=== PATIENT | male | born 1990 | race Caucasian/White ===

== ENCOUNTER 2017-12-26 18:38 | Emergency (ER) | payer OTHER ==
[~2017-12-26] VITALS: Ht 185.4 cm; Wt 122.7 kg
[2017-12-26 18:49] VITALS: TEMP 36.8; Ht 185.4 cm; Wt 122.7 kg
[2017-12-26] MEDS ORDERED: IBUPROFEN 600 MG TAB PO STA (19:11)
[2017-12-26] MEDS ORDERED: ACETAMINOPHEN 500 MG TAB PO STA (19:11)
--- NOTE | 2017-12-26 19:50 | DIAGNOSTIC IMAGING REPORT ---
L TIBIA/FIBULA 4 VIEWS ROUTINE CLINICAL HISTORY: Left lower leg pain status post trauma COMPARISON: None. DISCUSSION: No acute fractures or dislocations are visualized. IMPRESSION: No acute fractures identified. Electronically signed by: Rudy Macario M.D. 12/26/2017 7:48 PM Dictated Date/Time: 12/26/2017 7:48 PM
--- NOTE | 2017-12-26 20:45 | DIAGNOSTIC IMAGING REPORT ---
ULTRASOUND L VENOUS DOPP LOWER EXT UNILAT CLINICAL HISTORY: Left leg pain. Bruising. COMPARISON STUDY: No previous studies for comparison. FINDINGS: Real-time and color flow Doppler imaging were performed. Flow was seen within the femoral, popliteal and calf veins with no intraluminal thrombus demonstrated. The saphenous vein is patent. IMPRESSION: No evidence of left lower extremity DVT. Electronically signed by: Rudy Macario M.D. 12/26/2017 8:43 PM Dictated Date/Time: 12/26/2017 8:43 PM
[2017-12-26] MEDS ORDERED: NORCO 5/325MG HOME PACK PO ONE (21:15)
[2017-12-26] MEDS ORDERED: IBUP-1459 PO (21:17)
[2017-12-26 21:55] VITALS: BP 124/72; PULSE 72; O2SAT 98
--- NOTE | 2017-12-26 22:46 | EMERGENCY ROOM VISIT NOTE ---
History First contact with patient: 18:54 Chief Complaint: LEG PAIN,LEG INJURY Stated Complaint: PULL OR TEAR IN LEG History of Present Illness The patient is a 27 year old male who presents to the Emergency Room with complaints of pain in his left leg that began about 2 days ago. Patient states that he is usually healthy without chronic problems in this leg. The patient got off work this week, and states that his friend was going to drive him home. Patient began jogging up a hill to get to the vehicle, when he felt a loud pop and instant pain in the left calf. The patient has had difficulty with walking ever since, stating that whenever he pushes down with his foot it causes significant pain. He has been walking on his heel because of this. He has been taking 400 mg ibuprofen with only minimal improvement of symptoms. He rates his current discomfort as 6/10 that does worsen with walking. Review of Systems More than 10 systems were reviewed and otherwise negative with the exception of history of present illness. Past Medical/Surgical History No chronic medical disease Family History No pertinent family history Social History Smoking Status: Never Smoker Occupation Status: employed Current/Historical Medications Scheduled PRN Ibuprofen (Motrin), 400 MG PO BID PRN for Pain Physical Exam Vital Signs Date Time Temp Pulse Resp B/P (MAP) Pulse Ox O2 Delivery O2 Flow Rate FiO2 12/26/17 21:55 72 20 124/72 98 12/26/17 18:49 36.8 87 18 135/66 98 Room Air Physical Exam VITALS: Vitals are noted on the nurse's note and reviewed by myself. Vital signs stable. GENERAL: Well-developed, well-nourished, white male, who is in no acute distress and resting comfortably. Patient is cooperative with the examination. NECK: Supple without nuchal rigidity. No lymphadenopathy. No thyromegaly. Cervical spine is nontender. HEART: Regular rate and rhythm without murmurs gallops or rubs. LUNGS: Clear to auscultation bilaterally without wheezes, rales or rhonchi. No retractions or accessory muscle use. ABDOMEN: Positive normal bowel sounds x 4. Soft, nontender, without masses or organomegaly. No guarding or rebound tenderness. MUSCULOSKELETAL: Tenderness is appreciated throughout the posterior aspect of the left calf. There is medial ecchymosis as well. No palpable cord. Strength dorsiflexion is full, however it is notably decreased to plantarflexion of the left foot. No tenderness of the knee or hip. Medical Decision & Procedures ER Provider Diagnostic Interpretation: ULTRASOUND L VENOUS DOPP LOWER EXT UNILAT CLINICAL HISTORY: Left leg pain. Bruising. COMPARISON STUDY: No previous studies for comparison. FINDINGS: Real-time and color flow Doppler imaging were performed. Flow was seen within the femoral, popliteal and calf veins with no intraluminal thrombus demonstrated. The saphenous vein is patent. IMPRESSION: No evidence of left lower extremity DVT. L TIBIA/FIBULA 4 VIEWS ROUTINE CLINICAL HISTORY: Left lower leg pain status post trauma COMPARISON: None. DISCUSSION: No acute fractures or dislocations are visualized. IMPRESSION: No acute fractures identified. Medications Administered Medications (Trade) Dose Ordered Sig/[place] Route Start Time Stop Time Status Last Admin Dose Admin Acetaminophen (Tylenol Tab) 1,000 mg NOW STAT PO 12/26/17 19:11 12/26/17 19:12 DC 12/26/17 19:17 1,000 MG Ibuprofen (Motrin Tab) 600 mg NOW STAT PO 12/26/17 19:11 12/26/17 19:12 DC 12/26/17 19:16 600 MG Acetaminophen/ Hydrocodone Bitart ([place] 5/325mg Home Pack) 1 homepack UD ONCE PO 12/26/17 21:15 12/26/17 21:16 DC 12/26/17 21:49 1 HOMEPACK ED Course Physical exam and history were performed. Nursing notes, EMR, and Medication List were personally reviewed. Patient appears to have pain in his left calf after feeling a popping sensation while running the other day. On examination he does have tenderness and bruising along the medial gastroc. The patient was given ibuprofen and Tylenol here in the department. Both x-ray and ultrasound were performed. The x-ray is as above and was reviewed by myself and radiology. It does not show acute fracture or dislocation. Ultrasound is without signs of DVT or other significant findings. Clinically I have concern for muscle or tendinous injury causing his symptoms. The patient will be placed in an Orthoplast splint and given crutches. I will also give him a home pack of Vicodin. The patient needs to follow with orthopedics for further care and management. He was otherwise invited back to the ER with any new, worsening, or concerning symptoms. The chart was completed utilizing [employer] Voice Recognition Software. Grammatical errors, random word insertions, pronoun errors, and incomplete sentences are an occasional consequence of this system due to software limitations, ambient noise, and hardware issues. Any formal questions or concerns about the content, text, or information contained within the body of this dictation should be directly addressed to the provider for clarification. . Medical Decision Differential diagnosis includes, but is not limited to: Sprain, strain, fracture , dislocation, subluxation, contusion, and others Impression Primary Impression: Injury of left lower leg Departure Information Dispostion Home / Self-Care Condition GOOD Referrals Hector James, DO Forms HOME CARE DOCUMENTATION FORM, IMPORTANT VISIT INFORMATION Patient Instructions My [facility], ED Compartment Syndrome At Risk For, ED RICE Additional Instructions You were seen and evaluated today on an emergency basis only. This is not a substitute for, or an effort to provide, complete comprehensive medical care. It is not possible to recognize and treat all injuries or illnesses in a single emergency department visit. For this reason it is recommended that you followup with [facility], Dr. James's office, by telephone tomorrow morning to arrange a follow-up visit this week. Let them know you are seen in the ER. Use your crutches at all times to help with walking. Do not get your splint wet. For baseline pain relief you may alternate ibuprofen and acetaminophen every 4 hours for pain control. Take 600 mg ibuprofen (Advil) and then 4 hours later take 1000 mg acetaminophen (Tylenol). Do not take more than 3000 mg acetaminophen in a single day. [place] (hydrocodone/acetaminophen) 5/325 mg (homepack) ONE tab by mouth every 6 hours as needed for worsening breakthrough pain. Do not drink or drive on [place]. This medication will likely make you tired. Do not take [place] and Tylenol at the same time as both contain acetaminophen. [place] may cause constipation. You may wish to take an [id number] stool softener like Colace if this occurs. You are welcome to return to the emergency department anytime with new, worsening, or concerning symptoms.
== END 2017-12-26 21:56 | disposition home or self-care (01) ==
LOC: C.EDB 18:39 → C.EDD 21:56
DX: S89.92XA Unspecified injury of left lower leg, initial encounter (principal); X58.XXXA Exposure to other specified factors, initial encounter; Y99.0 Civilian activity done for income or pay

== ENCOUNTER 2021-12-05 05:51 | Inpatient (IN) ==
--- NOTE | 2021-12-05 06:33 | Emergency Department Note ---
Impression & Plan Paranoia, Delusional disorder, Depressed mood ED Provider Note NAME: GALE BRYSON AGE: 30 SEX: M : 1990 ARRIVES VIA: Walk-In INFORMANT: patient, ED PROVIDER(S): Lino Barnhart MD Chief Complaint: Paranoia, delusional, obsessive and compulsive. HPI: Patient does present with above complaints which have been ongoing for the last several months and have gotten progressively worse. The patient has had increasing paranoia thinking that people are coming to the home when the doors are locked and that the neighbors to be trying to listen in on him through the Wi-Fi. Patient has no prior history of any mental wellness issues but there is family history of schizophrenia on both sides. Patient denies any HI or AVH. The patient states that he does feel depressed and has some apathy but no active intent to harm himself. Patient denies any fevers chills chest pain shortness of breath nausea or vomiting. Patient has not been able to hold a steady job. The patient denies any alcohol tobacco or drug use. Patient does not take any supplements or stimulants. Patient is not vaccinated for COVID-19. Patient has had worsening insomnia, poor sleep and decreased appetite. No access to guns or weapons at home. Patient states he does not feel safe at home. Mother bedside states that this is gotten progressively worse over the last several months the patient is increasingly paranoid and delusional. ROS: See HPI for pertinent positives and negatives. A total of 10 systems were reviewed and otherwise negative. Past medical history: See below Surgical history: See below Social history: See below Physical Exam: GENERAL: NAD, non-toxic. EYE EXAM: Normal conjunctiva. PERRL, no anisocoria and EOM's grossly intact w/o pain. OROPHARYNX: Moist mucus membranes. Grossly normal dentition. NECK: Supple, no nuchal rigidity, no adenopathy, non-tender. No signs of meningismus. LUNGS: Clear to auscultation. Normal chest wall mechanics. HEART: NSR, no MRG. ABDOMEN: Abdomen soft, non-tender, normo-active bowel sounds, no masses, no rebound or guarding. BACK: No CVA TTP. SKIN: No rashes and no bruising. UPPER EXTREMITIES: Upper extremities are grossly normal. LOWER EXTREMITIES: Grossly normal, no edema. NEURO EXAM: A&O x3, cranial nerves II-XII grossly intact, normal speech, moves all 4 extremities on command w/o issue. Psych: Depressed mood, negative HI SI or AVH. Differential diagnoses: Mood disorder, infection, hypoglycemia, electrolyte abnormalities, cardiac sources, intracerebral event, toxicologic, trauma, neurologic, as well as other pathologies. MDM: Patient was seen due to concern for mental wellness. Blood work was obtained patient was deemed medically cleared. Patient was seen and evaluated raised by the psych oil field caser. A referral was made upstairs and the patient was subsequently accepted to inpatient psychiatric at [facility]. Past Med/Surg History Medical History No pertinent past medical history Surgical History No pertinent past surgical history Social History Smoking Status: Never smoker Preferred Language: Bhutanese Feels Safe at Home: No Allergies Allergies Allergy/AdvReac Type Severity Reaction Status Date / Time No Known Allergies Allergy Verified 12/05/21 09:36 Home Meds Home Medications Medication Instructions Recorded Confirmed No Known Home Medications 01/08/19 12/05/21 Results & Data (ED) Vital Signs Vital Signs - 24 hr 12/05/21 05:56 12/05/21 09:26 Temperature 36.4 C L Temperature Source Oral Pulse Rate 83 Pulse Rate [Finger] 78 Respiratory Rate 18 18 Respiratory Effort / Characteristics Non-Labored Respiratory Depth Normal Blood Pressure 151/93 H Blood Pressure [Left Arm] 131/77 Blood Pressure Mean 112 Blood Pressure Mean [Left Arm] 95 Pulse Oximetry 96 98 Oxygen Delivery Method Room Air Room Air Sepsis Recent Fever Within 48 Hours No Sepsis New/Unexplained Change in Mental Status No Sepsis Action Taken by Nursing No Action Required Home Medications Current Medication List: was personally reviewed by me Laboratory Data Attestation: I reviewed the patient's lab results. Result diagrams: 12/05/21 06:25 12/05/21 06:25 Lab Results 12/05/21 12/05/21 12/05/21 Range/Units 06:05 06:05 06:05 WBC (4.8-10.8) K/uL RBC (4.7-6.1) M/uL Hgb (14.0-18.0) g/dL Hct (42-52) % MCV (80-100) fL MCH (25-34) pg MCHC (32-36) g/dL RDW Std Deviation (36.4-46.3) fL RDW Coeff of Bonifacio (11.5-14.5) % Plt Count (130-400) K/uL MPV (7.4-10.4) fL Immature Gran % (Auto) % Neut % (Auto) % Lymph % (Auto) % [place] % (Auto) % Eos % (Auto) % Baso % (Auto) % Neut # (Auto) (1.4-6.5) K/uL Lymph # (Auto) (1.2-3.4) K/uL [place] # (Auto) (0.11-0.59) K/uL Eos # (Auto) (0-0.5) K/uL Baso # (Auto) (0-0.2) K/uL Immature Gran # (Auto) (0.00-0.02) K/uL Sodium (136-145) mmol/L Potassium (3.5-5.1) mmol/L Chloride (98-107) mmol/L Carbon Dioxide (21-32) mmol/L Anion Gap (3-11) BUN (6-23) mg/dl Creatinine (0.6-1.4) mg/dl Est Cr Clr Drug Dosing ml/min Est GFR ( Amer) ml/min Est GFR (Non-Af Amer) ml/min BUN/Creatinine Ratio (10-20) Glucose (70-99(Fasting)) mg/dl Calcium (8.5-10.1) mg/dl Total Bilirubin (0.2-1.0) mg/dl AST (13-39) U/L ALT (7-52) U/L Alkaline Phosphatase (34-104) U/L Total Protein (6.0-8.3) gm/dl Albumin (3.4-5.0) gm/dl Globulin (2.5-4.0) gm/dl Albumin/Globulin Ratio (0.9-2) TSH (0.300-4.500) uIu/ml Free T4 (0.61-1.60) ng/dl Urine Color Yellow Urine Appearance Clear (Clear) Urine pH 6.5 (4.5-7.5) Ur Specific [place] 1.015 (1.000-1.030) Urine Protein Negative (Negative) Urine Glucose (UA) Negative (Negative) Urine Ketones Negative (Negative) Urine Blood Negative (Negative) Urine Nitrite Negative (Negative) Urine Bilirubin Negative (Negative) Urine Urobilinogen Negative (Negative) Ur Leukocyte Esterase Negative (Negative) Salicylates (3.0-30) mg/dl Urine Opiates Screen Neg (Neg) Ur Methadone, Qual Neg (Neg) Acetaminophen (10-30) ug/ml Urine Barbiturates Neg (Neg) Ur Phencyclidine (PCP) Neg (Neg) U Amphetamin/Meth Scrn Neg (Neg) MDMA (Ecstasy) Screen Neg (Neg) U Benzodiazepines Scrn Neg (Neg) Ur Cocaine Metabolite Neg (Neg) U Marijuana (THC) Screen Neg (Neg) Ethyl Alcohol mg/dL (<10.0) mg/dl SARS-CoV-2, RNA, NAAT NEGATIVE (NEGATIVE) 12/05/21 12/05/21 12/05/21 Range/Units 06:25 06:25 06:25 WBC 8.17 (4.8-10.8) K/uL RBC 5.13 (4.7-6.1) M/uL Hgb 16.0 (14.0-18.0) g/dL Hct 45.7 (42-52) % MCV 89.1 (80-100) fL MCH 31.2 (25-34) pg MCHC 35.0 (32-36) g/dL RDW Std Deviation 39.9 (36.4-46.3) fL RDW Coeff of Bonifacio 12.3 (11.5-14.5) % Plt Count 215 (130-400) K/uL MPV 10.4 (7.4-10.4) fL Immature Gran % (Auto) 0.2 % Neut % (Auto) 53.7 % Lymph % (Auto) 38.1 % [place] % (Auto) 6.1 % Eos % (Auto) 1.5 % Baso % (Auto) 0.4 % Neut # (Auto) 4.39 (1.4-6.5) K/uL Lymph # (Auto) 3.11 (1.2-3.4) K/uL [place] # (Auto) 0.50 (0.11-0.59) K/uL Eos # (Auto) 0.12 (0-0.5) K/uL Baso # (Auto) 0.03 (0-0.2) K/uL Immature Gran # (Auto) 0.02 (0.00-0.02) K/uL Sodium 137 (136-145) mmol/L Potassium 3.6 (3.5-5.1) mmol/L Chloride 103 (98-107) mmol/L Carbon Dioxide 27 (21-32) mmol/L Anion Gap 7 (3-11) BUN 13 (6-23) mg/dl Creatinine 0.89 (0.6-1.4) mg/dl Est Cr Clr Drug Dosing 176.0 ml/min Est GFR ( Amer) 133.9 ml/min Est GFR (Non-Af Amer) 115.5 ml/min BUN/Creatinine Ratio 14.6 (10-20) Glucose 106 H (70-99(Fasting)) mg/dl Calcium 8.7 (8.5-10.1) mg/dl Total Bilirubin 0.6 (0.2-1.0) mg/dl AST 15 (13-39) U/L ALT 19 (7-52) U/L Alkaline Phosphatase 52 (34-104) U/L Total Protein 7.3 (6.0-8.3) gm/dl Albumin 4.5 (3.4-5.0) gm/dl Globulin 2.8 (2.5-4.0) gm/dl Albumin/Globulin Ratio 1.6 (0.9-2) TSH 4.542 H (0.300-4.500) uIu/ml Free T4 (0.61-1.60) ng/dl Urine Color Urine Appearance (Clear) Urine pH (4.5-7.5) Ur Specific [place] (1.000-1.030) Urine Protein (Negative) Urine Glucose (UA) (Negative) Urine Ketones (Negative) Urine Blood (Negative) Urine Nitrite (Negative) Urine Bilirubin (Negative) Urine Urobilinogen (Negative) Ur Leukocyte Esterase (Negative) Salicylates (3.0-30) mg/dl Urine Opiates Screen (Neg) Ur Methadone, Qual (Neg) Acetaminophen (10-30) ug/ml Urine Barbiturates (Neg) Ur Phencyclidine (PCP) (Neg) U Amphetamin/Meth Scrn (Neg) MDMA (Ecstasy) Screen (Neg) U Benzodiazepines Scrn (Neg) Ur Cocaine Metabolite (Neg) U Marijuana (THC) Screen (Neg) Ethyl Alcohol mg/dL (<10.0) mg/dl SARS-CoV-2, RNA, NAAT (NEGATIVE) 12/05/21 12/05/21 12/05/21 Range/Units 06:25 06:25 06:25 WBC (4.8-10.8) K/uL RBC (4.7-6.1) M/uL Hgb (14.0-18.0) g/dL Hct (42-52) % MCV (80-100) fL MCH (25-34) pg MCHC (32-36) g/dL RDW Std Deviation (36.4-46.3) fL RDW Coeff of Bonifacio (11.5-14.5) % Plt Count (130-400) K/uL MPV (7.4-10.4) fL Immature Gran % (Auto) % Neut % (Auto) % Lymph % (Auto) % [place] % (Auto) % Eos % (Auto) % Baso % (Auto) % Neut # (Auto) (1.4-6.5) K/uL Lymph # (Auto) (1.2-3.4) K/uL [place] # (Auto) (0.11-0.59) K/uL Eos # (Auto) (0-0.5) K/uL Baso # (Auto) (0-0.2) K/uL Immature Gran # (Auto) (0.00-0.02) K/uL Sodium (136-145) mmol/L Potassium (3.5-5.1) mmol/L Chloride (98-107) mmol/L Carbon Dioxide (21-32) mmol/L Anion Gap (3-11) BUN (6-23) mg/dl Creatinine (0.6-1.4) mg/dl Est Cr Clr Drug Dosing ml/min Est GFR ( Amer) ml/min Est GFR (Non-Af Amer) ml/min BUN/Creatinine Ratio (10-20) Glucose (70-99(Fasting)) mg/dl Calcium (8.5-10.1) mg/dl Total Bilirubin (0.2-1.0) mg/dl AST (13-39) U/L ALT (7-52) U/L Alkaline Phosphatase (34-104) U/L Total Protein (6.0-8.3) gm/dl Albumin (3.4-5.0) gm/dl Globulin (2.5-4.0) gm/dl Albumin/Globulin Ratio (0.9-2) TSH (0.300-4.500) uIu/ml Free T4 0.86 (0.61-1.60) ng/dl Urine Color Urine Appearance (Clear) Urine pH (4.5-7.5) Ur Specific [place] (1.000-1.030) Urine Protein (Negative) Urine Glucose (UA) (Negative) Urine Ketones (Negative) Urine Blood (Negative) Urine Nitrite (Negative) Urine Bilirubin (Negative) Urine Urobilinogen (Negative) Ur Leukocyte Esterase (Negative) Salicylates < 3.0 L (3.0-30) mg/dl Urine Opiates Screen (Neg) Ur Methadone, Qual (Neg) Acetaminophen < 3 L (10-30) ug/ml Urine Barbiturates (Neg) Ur Phencyclidine (PCP) (Neg) U Amphetamin/Meth Scrn (Neg) MDMA (Ecstasy) Screen (Neg) U Benzodiazepines Scrn (Neg) Ur Cocaine Metabolite (Neg) U Marijuana (THC) Screen (Neg) Ethyl Alcohol mg/dL < 10.0 (<10.0) mg/dl SARS-CoV-2, RNA, NAAT (NEGATIVE) Discharge Plan Visit Data Chief Complaint: Mental Health Evaluation Stated Complaint: ANXIETY,PARANOIA,SOUNDS IN HEAD,MENTAL HEALTH EVAL ED Provider: Lino Barnhart Discharge Problem: Paranoia, Delusional disorder, Depressed mood Patient Disposition: Admitted As Inpatient Forms Stand Alone Forms: My [facility], Suicide Prevention Resources Prescriptions Prescriptions: No Action No Known Home Medications RF: 0 Referrals Referrals: PCP,NO [Primary Care Provider] -
[2021-12-05 06:39] LABS: Basophils # (auto) 0.03 K/uL (0-0.2); Basophils % (auto) 0.4 %; Eosinophils # (auto) 0.12 K/uL (0-0.5); Eosinophils % (auto) 1.5 %; Hematocrit (blood only) 45.7 % (42-52); Immature Granulocytes # (auto) 0.02 K/uL (0.00-0.02); Immature Granulocytes % (auto) 0.2 %; Lymphocytes # (auto) 3.11 K/uL (1.2-3.4); Lymphocytes % (auto) 38.1 %; Mean Corpuscular Hemoglobin 31.2 pg (25-34); Mean Corpuscular Volume 89.1 fL (80-100); Mean Platelet Volume 10.4 fL (7.4-10.4); Monocytes % (auto) 6.1 %; Neutrophils # (auto) 4.39 K/uL (1.4-6.5); Neutrophils % (auto) 53.7 %; Platelet Count 215 K/uL (130-400); RDW Coefficient of Variation 12.3 % (11.5-14.5); RDW Standard Deviation 39.9 fL (36.4-46.3); Red Blood Count 5.13 M/uL (4.7-6.1); White Blood Count 8.17 K/uL (4.8-10.8)
[2021-12-05 06:45] LABS: Appearance Urine Clear (Clear); Bilirubin Urine Negative (Negative); Blood Urine Negative (Negative); Color Urine Yellow; Glucose Urine UA Negative (Negative); Ketones Urine Negative (Negative); Leukocyte Esterase Urine Negative (Negative); Nitrite Urine Negative (Negative); Protein Urine Negative (Negative); Specific Gravity Urine 1.015 (1.000-1.030); Urobilinogen Urine Negative (Negative); pH Urine 6.5 (4.5-7.5)
[2021-12-05 07:02] LABS: Acetaminophen < 3 ug/ml (10-30); Albumin Globulin Ratio 1.6 (0.9-2); Albumin Level 4.5 gm/dl (3.4-5.0); BUN Creatinine Ratio 14.6 (10-20); Bilirubin,Total 0.6 mg/dl (0.2-1.0); Calcium 8.7 mg/dl (8.5-10.1); Est GFR (African American) 133.9 ml/min; Est GFR (Non-African American) 115.5 ml/min; Globulin 2.8 gm/dl (2.5-4.0); Potassium 3.6 mmol/L (3.5-5.1); Salicylate < 3.0 mg/dl (3.0-30); Total Protein 7.3 gm/dl (6.0-8.3)
[2021-12-05 07:15] LABS: Amphetamines+Metham, Urine Neg (Neg); Barbiturates, Urine Neg (Neg); Benzodiazepine, Urine Neg (Neg); Cocaine, Urine Neg (Neg); MDMA (Ecstacy), Urine Neg (Neg); Methadone, Urine Neg (Neg); Opiate, Urine Neg (Neg); Phencyclidine, Urine Neg (Neg)
[2021-12-05] MEDS ORDERED: OLANZapine 5 MG TABLET PO PRN (10:45)
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
[2021-12-05] MEDS ORDERED: hydrOXYzine HCl 25 MG TAB PO PRN (11:16)
[2021-12-05] MEDS ORDERED: MAGNESIUM HYDROXIDE SUSP 30 ML UDC PO PRN (11:16)
[2021-12-05] MEDS ORDERED: SODIUM CHLORIDE 0.65% NA SOLN 45 ML (OCEAN) PRN (11:16)
[2021-12-05] MEDS ORDERED: BISMUTH SUBSALICYLATE LIQD 236 ML PO PRN (11:16)
[2021-12-05] MEDS ORDERED: ACETAMINOPHEN 325 MG TAB PO PRN (11:16)
[2021-12-05] MEDS ORDERED: ALUMINUM/MAGNESIUM SUSP 30 ML UDC PO PRN (11:16)
[2021-12-05] MEDS ORDERED: risperiDONE 0.5 MG TABLET PO SCH (22:00)
[2021-12-06] MEDS: risperiDONE 0.5 MG TABLET PO SCH (08:48)
--- NOTE | 2021-12-06 08:57 | Psychiatric Progress Note ---
Date of Service December 06, 2021 Impression / Recommendations Impression The patient is a 30 year old with no known psychiatric history, question for possible intellectual or specific learning disability given limited educational progress who was admitted for unspecified psychosis. Differential is broad but most likely diagnoses at this point are schizophreniform disorder given family history of schizophrenia and negative symptoms versus MDD with psychotic features. No evidence for rod/BPAD nor substance-induced or withdrawal cause. The patient is deemed unstable and requires psychiatric hospitalization for diagnostic clarification, safety and stabilization, medication management and development of further coping skills. 12/06/21: Tolerated initiation of risperidone and he consents to further increase of qhs dose to help with ongoing paranoia and anxiety especially before bed. Remains very guarded and withdrawn. Social work to gather further collateral from his mother about recent symptom progression. MNPR due to psychiatric symptoms of psychosis and paranoia and limited ability to tolerate interactions with others (1) Unspecified psychosis not due to a substance or known physiological condition: (2) Paranoia: (3) Depressed mood: 12/06/21: Increase risperidone to 0.25 mg qAM & 1 mg qHS. 12/05/21: The patient was admitted to the [facility] ([facility] mental [facility] unit) on q15 min checks (behavioral with suicide precautions) for safety. The patient will participate in group, recreational, and milieu therapies and will be offered additional individual and family sessions as clinically appropriate. -Start risperidone 0.25 mg qAM & 0.5 mg qhs -Fasting labs in the morning -Will need PCP follow-up for hernia concern Risk Factors Assessment Do You Have Access To A Gun?: No Protective Factors Assessment Employed: No (per mother, unable to maintain employment) Interval History Identifying Information GALE BRYSON is a 30-year-old man who currently lives in [place] with his mother and was admitted on 12/05/21 09:37 on a 201 voluntary commitment for paranoia and psychosis. Chief Complaint "I'm ok". Review of Systems Sleep Information Total Hours of Sleep: 4.75 Meal Information Percent Meal Consumed - Lunch: 100 Percent Meal Consumed - Dinner: 100 Subjective Subjective Patient was seen & assessed and interval progress reviewed with treatment team nursing and social work. Slept about 5 hours last night. Eating non-packaged foods. Guarded and withdrawn. Reports poor sleep due to anxiety about legal charges, states he thinks it is a third degree felony charge and that he could be incarcerated for 7 years. Expresses remorse that he let his anger and anxiety and "OCD" get the best of him and remains very worried about potential consequences. Had some mild orthostatic dizziness from risperidone when getting up in the middle of the night but sat for a minute and it went away. Denies any other side effects. Feels it is helping "a little bit" in that he is no longer having the chest pain from anxiety but still feels very anxious. Remains very guarded. Physical Exam Psychiatric Orientation: alert, oriented x 3 and + guarded Apperance: appropriately dressed and appropriately groomed Eye Contact: + poor eye contact Motor Behavior: steady gait and station and no abnormal motor movements Speech: normal rate/rhythm/volume of speech Affect: + flat affect Mood: + depressed mood and + anxious mood Thought Process: + circumstantial thought process and + looseness of associations Thought Content: + paranoid and + delusions Suicidal Thoughts: denies suicidal thoughts Homicidal Thoughts: denies homicidal thoughts Hallucinations: no auditory hallucinations and no visual hallucinations Cognition: language grossly intact; + attention not intact Estimated Intelligence: consistent with education level Insight: + impaired insight Judgement: + impaired judgement Vital Signs (Past 24 Hours) Last Vital Signs Temp 36.3 C L 12/06/21 06:36 Pulse 68 12/06/21 06:37 Resp 18 12/06/21 06:36 BP 122/81 12/06/21 06:37 Pulse Ox 98 12/05/21 09:26 Results & Data ([facility]) Current Inpatient Medications Current Inpatient Medications: Current Inpatient Medications Acetaminophen (Acetaminophen 325 Mg Tab) 650 mg PO Q4H PRN PRN Reason: Headache or Minor Fever Stop: 01/04/22 11:15 Al Hydrox/Mg Hydrox/Simethicone (Aluminum/Magnesium Susp 30 Ml Udc) 30 ml PO Q4H PRN PRN Reason: GI Upset Stop: 01/04/22 11:15 Bismuth Subsalicylate (Bismuth Subsalicylate Liqd 236 Ml) 15 ml PO PRN PRN PRN Reason: Loose Stool Stop: 01/04/22 11:15 Hydroxyzine HCl (Hydroxyzine Hcl 25 Mg Tab) 50 mg PO HSZ PRN PRN Reason: Insomnia Stop: 01/04/22 11:15 Hydroxyzine HCl (Hydroxyzine Hcl 25 Mg Tab) 25 mg PO Q4H PRN PRN Reason: Anxiety Stop: 01/04/22 11:15 Magnesium Hydroxide (Magnesium Hydroxide Susp 30 Ml Udc) 30 ml PO DAILY PRN PRN Reason: Constipation Stop: 01/04/22 11:15 Olanzapine (Olanzapine 5 Mg Tablet) 5 mg PO BID PRN PRN Reason: Agitation Stop: 01/04/22 20:59 Risperidone (Risperidone 0.5 Mg Tablet) 0.25 mg PO QAM ANDREA Stop: 01/05/22 08:59 Last Admin: 12/06/21 08:48 Dose: 0.25 mg Documented by: Risperidone (Risperidone 0.5 Mg Tablet) 0.5 mg PO HS ANDREA Stop: 01/04/22 21:59 Last Admin: 12/05/21 21:54 Dose: 0.5 mg Documented by: Sodium Chloride (Sodium Chloride 0.65% Na Soln 45 Ml ([place])) 1 - 2 sprays NA PRN PRN PRN Reason: Nasal Dryness/Congestion Stop: 01/04/22 11:15 Mental Health & Subst Abuse Tx Therapist Name of Therapist: None Fire Chief'S Aide Name of Fire Chief'S Aide: None
[2021-12-06] MEDS: risperiDONE 1 MG TABLET PO SCH (21:44)
[2021-12-06] MEDS: hydrOXYzine HCl 25 MG TAB PO PRN (21:45)
[2021-12-07 08:36] LABS: Chol HDL Ratio 4.2 (0-5)
[2021-12-07] MEDS: risperiDONE 0.5 MG TABLET PO SCH (09:31)
--- NOTE | 2021-12-07 10:49 | Psychiatric Progress Note ---
Date of Service December 07, 2021 Impression / Recommendations Impression The patient is a 30 year old with no known psychiatric history, question for possible intellectual or specific learning disability given limited educational progress who was admitted for unspecified psychosis. Differential is broad but most likely diagnoses at this point are schizophreniform disorder given family history of schizophrenia and negative symptoms versus MDD with psychotic features. No evidence for rod/BPAD nor substance-induced or withdrawal cause. The patient is deemed unstable and requires psychiatric hospitalization for diagnostic clarification, safety and stabilization, medication management and development of further coping skills. 12/07/21: Reviewed fasting labs and discussed with Hamilton. Normal fasting glucose but slightly elevated total cholesterol and LDL. Will need PCP follow-up after discharge to discuss treatment options for hyperlipidemia especially given potential metabolic risks with risperidone. Reviewed with Hamilton that this will require ongoing routine monitoring via bloodwork which he understands and that if it worsens in the future then safety profile of risperidone will need to be reassessed with his outpatient providers. Tolerating risperidone well with increased engagement, more active today and anxious, still with some paranoia but guardedness has improved significantly. Continue with risperidone titration. MNPR due to psychiatric symptoms of psychosis and paranoia and limited ability to tolerate interactions with others (1) Unspecified psychosis not due to a substance or known physiological condition: (2) Paranoia: (3) Depressed mood: (4) HLD (hyperlipidemia): Will need PCP follow-up to discuss treatment options/monitoring 12/07/21: Increase risperidone to 0.5 mg qAM & 1mg qHS. 12/06/21: Increase risperidone to 0.25 mg qAM & 1 mg qHS. 12/05/21: The patient was admitted to the [facility] ([facility] mental health unit) on q15 min checks (behavioral with suicide precautions) for safety. The patient will participate in group, recreational, and milieu therapies and will be offered additional individual and family sessions as clinically appropriate. -Start risperidone 0.25 mg qAM & 0.5 mg qhs -Fasting labs in the morning -Will need PCP follow-up for hernia concern Risk Factors Assessment Do You Have Access To A Gun?: No Protective Factors Assessment Employed: No (per mother, unable to maintain employment) Interval History Identifying Information HAMILTON BRYSON is a 30-year-old man who currently lives in [place] with his mother and was admitted on 12/05/21 09:37 on a 201 voluntary commitment for paranoia and psychosis. Chief Complaint "I'm ok". Review of Systems Sleep Information Total Hours of Sleep: 7.5 Meal Information Percent Meal Consumed - Breakfast: 100 Percent Meal Consumed - Lunch: 0 Percent Meal Consumed - Dinner: 100 Nutrition Comment: pt. resting; meal dated, labeled and refrigerated Subjective Subjective Patient was seen & assessed and interval progress reviewed with treatment team nursing and social work. Slept better last night "the best since I've been here". Denies any side effects from the risperidone. More engaged today, less isolative and more energetic. Makes a few glances to corners of the room while we are talking and paranoid about someone having stolen his "squatting belt" he uses to workout even with multiple reassurances from staff that it was placed with his belongings, focused on idea that "someone who exercises likely stole it". Feels the risperidone is helping with his "intrusive thoughts and OCD". Remains anxious about court date. Observed to be jogging around the unit and attempting to " lift" his bed today in effort to keep up with exercising. Reviewed results of his lipid panel and glucose blood work. Physical Exam Psychiatric Orientation: alert, oriented x 3 and + guarded Apperance: appropriately dressed and appropriately groomed Eye Contact: + fair eye contact Motor Behavior: steady gait and station and no abnormal motor movements Speech: normal rate/rhythm/volume of speech Affect: + blunted affect Mood: + depressed mood and + anxious mood Thought Process: + circumstantial thought process and + looseness of associ ations Thought Content: + paranoid and + delusions Suicidal Thoughts: denies suicidal thoughts Homicidal Thoughts: denies homicidal thoughts Hallucinations: no auditory hallucinations and no visual hallucinations Cognition: language grossly intact; + attention not intact Estimated Intelligence: consistent with education level Insight: + impaired insight Judgement: + impaired judgement Vital Signs (Past 24 Hours) Last Vital Signs Temp 36.3 C L 12/07/21 06:31 Pulse 67 12/07/21 06:31 Resp 16 12/07/21 06:31 BP 121/75 12/07/21 06:32 Pulse Ox 98 12/05/21 09:26 Results & Data ([facility]) Laboratory Results Laboratory Results - last 24 hr 12/07/21 08:04 Fasting Glucose 89 Triglycerides 94 Cholesterol 224 H LDL Cholesterol, Calc 152 VLDL Cholesterol, Calc 19 HDL Cholesterol 53 Cholesterol/HDL Ratio 4.2 Current Inpatient Medications Current Inpatient Medications: Current Inpatient Medications Acetaminophen (Acetaminophen 325 Mg Tab) 650 mg PO Q4H PRN PRN Reason: Headache or Minor Fever Stop: 01/04/22 11:15 Al Hydrox/Mg Hydrox/Simethicone (Aluminum/Magnesium Susp 30 Ml Udc) 30 ml PO Q4H PRN PRN Reason: GI Upset Stop: 01/04/22 11:15 Bismuth Subsalicylate (Bismuth Subsalicylate Liqd 236 Ml) 15 ml PO PRN PRN PRN Reason: Loose Stool Stop: 01/04/22 11:15 Hydroxyzine HCl (Hydroxyzine Hcl 25 Mg Tab) 50 mg PO HSZ PRN PRN Reason: Insomnia Stop: 01/04/22 11:15 Last Admin: 12/06/21 21:45 Dose: 50 mg Documented by: Hydroxyzine HCl (Hydroxyzine Hcl 25 Mg Tab) 25 mg PO Q4H PRN PRN Reason: Anxiety Stop: 01/04/22 11:15 Magnesium Hydroxide (Magnesium Hydroxide Susp 30 Ml Udc) 30 ml PO DAILY PRN PRN Reason: Constipation Stop: 01/04/22 11:15 Olanzapine (Olanzapine 5 Mg Tablet) 5 mg PO BID PRN PRN Reason: Agitation Stop: 01/04/22 20:59 Risperidone (Risperidone 0.5 Mg Tablet) 0.25 mg PO QAM ANDREA Stop: 01/05/22 08:59 Last Admin: 12/07/21 09:31 Dose: 0.25 mg Documented by: Risperidone (Risperidone 1 Mg Tablet) 1 mg PO HS ANDREA Stop: 01/05/22 21:59 Last Admin: 12/06/21 21:44 Dose: 1 mg Documented by: Sodium Chloride (Sodium Chloride 0.65% Na Soln 45 Ml ([place])) 1 - 2 sprays NA PRN PRN PRN Reason: Nasal Dryness/Congestion Stop: 01/04/22 11:15 Mental Health & Subst Abuse Tx Therapist Name of Therapist: None Flight Attendant Ramp Name of Flight Attendant Ramp: None
[2021-12-07] MEDS: risperiDONE 1 MG TABLET PO SCH (21:52)
[2021-12-07] MEDS: hydrOXYzine HCl 25 MG TAB PO PRN (22:18)
[2021-12-08] MEDS: risperiDONE 0.5 MG TABLET PO SCH (08:44)
--- NOTE | 2021-12-08 08:49 | Psychiatric Progress Note ---
Date of Service December 08, 2021 Impression / Recommendations Impression The patient is a 30 year old with no known psychiatric history, question for possible intellectual or specific learning disability given limited educational progress who was admitted for unspecified psychosis. Differential is broad but most likely diagnoses at this point are schizophreniform disorder given family history of schizophrenia and negative symptoms versus MDD with psychotic features. No evidence for rod/BPAD nor substance-induced or withdrawal cause. The patient is deemed unstable and requires psychiatric hospitalization for diagnostic clarification, safety and stabilization, medication management and development of further coping skills. 12/08/21: less guarded, engaging more with peers and starting to be able to reality-test. Still some paranoia about neighbors/neighborhood. Tolerating rispe ridone well without any side effects. Completed Y-BOCS with score of 15 and current obsessions of contamination/fear of losing things/checking compulsions/counting compulsions. MNPR due to psychiatric symptoms of psychosis and paranoia and limited ability to tolerate interactions with others (1) Unspecified psychosis not due to a substance or known physiological condition: (2) HLD (hyperlipidemia): Will need PCP follow-up to discuss treatment options/monitoring (3) Schizophreniform disorder: (4) Obsessive compulsive disorder: 12/08/21: Continue with risperidone. Needs family meeting. Working on medical assistance application. 12/07/21: Increase risperidone to 0.5 mg qAM & 1mg qHS. 12/06/21: Increase risperidone to 0.25 mg qAM & 1 mg qHS. 12/05/21: The patient was admitted to the [facility] ([facility] mental health unit) on q15 min checks (behavioral with suicide precautions) for safety. The patient will participate in group, recreational, and milieu therapies and will be offered additional individual and family sessions as clinically appropriate. -Start risperidone 0.25 mg qAM & 0.5 mg qhs -Fasting labs in the morning -Will need PCP follow-up for hernia concern Risk Factors Assessment Do You Have Access To A Gun?: No Protective Factors Assessment Employed: No (per mother, unable to maintain employment) Interval History Identifying Information GALE BRYSON is a 30-year-old man who currently lives in [place] with his mother and was admitted on 12/05/21 09:37 on a 201 voluntary commitment for paranoia and psychosis. Chief Complaint "Maybe I was overthinking things". Review of Systems Sleep Information Total Hours of Sleep: 6 Meal Information Percent Meal Consumed - Breakfast: 100 Percent Meal Consumed - Lunch: 100 Percent Meal Consumed - Dinner: 100 Nutrition Comment: pt. resting; meal dated, labeled and refrigerated Subjective Subjective Patient was seen & assessed and interval progress reviewed with treatment team nursing and social work. Out of his room more, attending groups, reporting decrease in anxiety. Able to reality-test around paranoia prior to admission noting that he was worried 'something was wrong with the water" and now starting to be able to recognize "maybe it was flour that caused the chalky stuff in the water that fell into the glass or maybe it's calcium deposits". Still unsure of people in his neighborhood noting "it's just the vibes I'm feeling from them" but also able to recognize "maybe I'm overthinking things". He's working on medical assistance paperwork with staff support. Discussed possibility of schizophreniform disorder which he disagrees with stating "I don't hear voices, my grandma had paranoid schizophrenia and I'm not like her". States he feels his paranoid was due to "overthinking" which he attributes to his OCD. Physical Exam Psychiatric Orientation: alert and oriented x 3 Apperance: appropriately dressed and appropriately groomed Eye Contact: + fair eye contact Motor Behavior: steady gait and station and no abnormal motor movements Speech: normal rate/rhythm/volume of speech Affect: + anxious affect Mood: + anxious mood Thought Process: + circumstantial thought process and + looseness of associations Thought Content: + obsessions, + paranoid, + compulsions and + delusions Suicidal Thoughts: denies suicidal thoughts Homicidal Thoughts: denies homicidal thoughts Hallucinations: no auditory hallucinations and no visual hallucinations Cognition: language grossly intact; + attention not intact Estimated Intelligence: consistent with education level Insight: + impaired insight Judgement: + impaired judgement Vital Signs (Past 24 Hours) Last Vital Signs Temp 36.7 C 12/08/21 05:58 Pulse 99 H 12/08/21 05:58 Resp 16 12/08/21 05:58 BP 130/81 12/08/21 05:58 Pulse Ox 98 12/05/21 09:26 Results & Data (U) Current Inpatient Medications Current Inpatient Medications: Current Inpatient Medications Acetaminophen (Acetaminophen 325 Mg Tab) 650 mg PO Q4H PRN PRN Reason: Headache or Minor Fever Stop: 01/04/22 11:15 Al Hydrox/Mg Hydrox/Simethicone (Aluminum/Magnesium Susp 30 Ml Udc) 30 ml PO Q4H PRN PRN Reason: GI Upset Stop: 01/04/22 11:15 Bismuth Subsalicylate (Bismuth Subsalicylate Liqd 236 Ml) 15 ml PO PRN PRN PRN Reason: Loose Stool Stop: 01/04/22 11:15 Hydroxyzine HCl (Hydroxyzine Hcl 25 Mg Tab) 50 mg PO HSZ PRN PRN Reason: Insomnia Stop: 01/04/22 11:15 Last Admin: 12/07/21 22:18 Dose: 50 mg Documented by: Hydroxyzine HCl (Hydroxyzine Hcl 25 Mg Tab) 25 mg PO Q4H PRN PRN Reason: Anxiety Stop: 01/04/22 11:15 Magnesium Hydroxide (Magnesium Hydroxide Susp 30 Ml Udc) 30 ml PO DAILY PRN PRN Reason: Constipation Stop: 01/04/22 11:15 Olanzapine (Olanzapine 5 Mg Tablet) 5 mg PO BID PRN PRN Reason: Agitation Stop: 01/04/22 20:59 Risperidone (Risperidone 1 Mg Tablet) 1 mg PO HS ANDREA Stop: 01/05/22 21:59 Last Admin: 12/07/21 21:52 Dose: 1 mg Documented by: Risperidone (Risperidone 0.5 Mg Tablet) 0.5 mg PO QAM ANDREA Stop: 01/07/22 08:59 Last Admin: 12/08/21 08:44 Dose: 0.5 mg Documented by: Sodium Chloride (Sodium Chloride 0.65% Na Soln 45 Ml ([place])) 1 - 2 sprays NA PRN PRN PRN Reason: Nasal Dryness/Congestion Stop: 01/04/22 11:15 Mental Health & Subst Abuse Tx Therapist Name of Therapist: None Utility Tractor Operator Name of Utility Tractor Operator: None
[2021-12-08] MEDS: risperiDONE 1 MG TABLET PO SCH (21:19)
[2021-12-08] MEDS: hydrOXYzine HCl 25 MG TAB PO PRN (21:34)
--- NOTE | 2021-12-09 08:59 | Psychiatric Progress Note ---
Date of Service December 09, 2021 Impression / Recommendations Impression The patient is a 30 year old with no known psychiatric history, question for possible intellectual or specific learning disability given limited educational progress who was admitted for unspecified psychosis. Differential is broad but most likely diagnoses at this point are schizophreniform disorder given family history of schizophrenia and negative symptoms versus MDD with psychotic features. No evidence for rod/BPAD nor substance-induced or withdrawal cause. The patient is deemed unstable and requires psychiatric hospitalization for diagnostic clarification, safety and stabilization, medication management and development of further coping skills. 12/09/21: engaging more, less anxiety and ruminative thoughts, decreased paranoia. Tolerating risperidone well. Family meeting held with his mother. Referral made for case management. MNPR due to psychiatric symptoms of psychosis and paranoia and limited ability to tolerate interactions with others (1) Unspecified psychosis not due to a substance or known physiological condition: (2) HLD (hyperlipidemia): Will need PCP follow-up to discuss treatment options/monitoring (3) Schizophreniform disorder: (4) Obsessive compulsive disorder: 12/09/21: Continue with risperidone. Medical assistance application submitted. Working on referrals for [facility] and case management. 12/08/21: Continue with risperidone. Needs family meeting. Working on medical assistance application. 12/07/21: Increase risperidone to 0.5 mg qAM & 1mg qHS. 12/06/21: Increase risperidone to 0.25 mg qAM & 1 mg qHS. 12/05/21: The patient was admitted to the [facility] ([facility] mental health unit) on q15 min checks (behavioral with suicide precautions) for safety. The patient will participate in group, recreational, and milieu therapies and will be offered additional individual and family sessions as clinically appropriate. -Start risperidone 0.25 mg qAM & 0.5 mg qhs -Fasting labs in the morning -Will need PCP follow-up for hernia concern Risk Factors Assessment Do You Have Access To A Gun?: No Protective Factors Assessment Employed: No (per mother, unable to maintain employment) Interval History Identifying Information GALE BRYSON is a 30-year-old man who currently lives in [place] with his mother and was admitted on 12/05/21 09:37 on a 201 voluntary commitment for paranoia and psychosis. Chief Complaint "I'm less anxious". Review of Systems Sleep Information Total Hours of Sleep: 8 Meal Information Percent Meal Consumed - Breakfast: 100 Percent Meal Consumed - Lunch: 100 Percent Meal Consumed - Dinner: 100 Nutrition Comment: pt. resting; meal dated, labeled and refrigerated Subjective Subjective Patient was seen & assessed and interval progress reviewed with treatment team nursing and social work. Out of his room and interacting appropriately with peers. Family meeting with his mother today. He finds the risperidone is helping with anxiety. Denies SI. Likes supporting peers on the unit and exercising to cope when he does feel anxious. Physical Exam Psychiatric Orientation: alert and oriented x 3 Apperance: appropriately dressed and appropriately groomed Eye Contact: good eye contact Motor Behavior: steady gait and station and no abnormal motor movements Speech: normal rate/rhythm/volume of speech Affect: + anxious affect Mood: + anxious mood; no depressed mood Thought Process: + circumstantial thought process Thought Content: + obsessions, + paranoid and + compulsions Suicidal Thoughts: denies suicidal thoughts Homicidal Thoughts: denies homicidal thoughts Hallucinations: no auditory hallucinations and no visual hallucinations Cognition: language grossly intact; + attention not intact Estimated Intelligence: consistent with education level Insight: + impaired insight Judgement: + impaired judgement Vital Signs (Past 24 Hours) Last Vital Signs Temp 36.6 C 12/09/21 06:00 Pulse 75 12/09/21 06:25 Resp 16 12/09/21 06:00 BP 146/86 H 12/09/21 06:25 Pulse Ox 98 12/05/21 09:26 Results & Data ([facility]) Current Inpatient Medications Current Inpatient Medications: Current Inpatient Medications Acetaminophen (Acetaminophen 325 Mg Tab) 650 mg PO Q4H PRN PRN Reason: Headache or Minor Fever Stop: 01/04/22 11:15 Al Hydrox/Mg Hydrox/Simethicone (Aluminum/Magnesium Susp 30 Ml Udc) 30 ml PO Q4H PRN PRN Reason: GI Upset Stop: 01/04/22 11:15 Bismuth Subsalicylate (Bismuth Subsalicylate Liqd 236 Ml) 15 ml PO PRN PRN PRN Reason: Loose Stool Stop: 01/04/22 11:15 Hydroxyzine HCl (Hydroxyzine Hcl 25 Mg Tab) 50 mg PO HSZ PRN PRN Reason: Insomnia Stop: 01/04/22 11:15 Last Admin: 12/08/21 21:34 Dose: 50 mg Documented by: Hydroxyzine HCl (Hydroxyzine Hcl 25 Mg Tab) 25 mg PO Q4H PRN PRN Reason: Anxiety Stop: 01/04/22 11:15 Magnesium Hydroxide (Magnesium Hydroxide Susp 30 Ml Udc) 30 ml PO DAILY PRN PRN Reason: Constipation Stop: 01/04/22 11:15 Olanzapine (Olanzapine 5 Mg Tablet) 5 mg PO BID PRN PRN Reason: Agitation Stop: 01/04/22 20:59 Risperidone (Risperidone 1 Mg Tablet) 1 mg PO HS ANDREA Stop: 01/05/22 21:59 Last Admin: 12/08/21 21:19 Dose: 1 mg Documented by: Risperidone (Risperidone 0.5 Mg Tablet) 0.5 mg PO QAM ANDREA Stop: 01/07/22 08:59 Last Admin: 12/08/21 08:44 Dose: 0.5 mg Documented by: Sodium Chloride (Sodium Chloride 0.65% Na Soln 45 Ml ([place])) 1 - 2 sprays NA PRN PRN PRN Reason: Nasal Dryness/Congestion Stop: 01/04/22 11:15 Mental Health & Subst Abuse Tx Therapist Name of Therapist: None Overnight Stocker Name of Overnight Stocker: None
[2021-12-09] MEDS: risperiDONE 0.5 MG TABLET PO SCH (09:08)
[2021-12-09] MEDS: risperiDONE 1 MG TABLET PO SCH (21:23)
[2021-12-09] MEDS: hydrOXYzine HCl 25 MG TAB PO PRN (22:09)
--- NOTE | 2021-12-10 08:47 | Psychiatric Progress Note ---
Date of Service December 10, 2021 Impression / Recommendations Impression The patient is a 30 year old with no known psychiatric history, question for possible intellectual or specific learning disability given limited educational progress who was admitted for unspecified psychosis. Differential is broad but most likely diagnoses at this point are schizophreniform disorder given family history of schizophrenia and negative symptoms versus MDD with psychotic features. No evidence for rod/BPAD nor substance-induced or withdrawal cause. The patient is deemed unstable and requires psychiatric hospitalization for diagnostic clarification, safety and stabilization, medication management and development of further coping skills. 12/10/21: Tolerating risperidone well with stable sleep and no further evidence of psychosis nor paranoia. (1) Unspecified psychosis not due to a substance or known physiological condition: (2) HLD (hyperlipidemia): Will need PCP follow-up to discuss treatment options/monitoring (3) Schizophreniform disorder: (4) Obsessive compulsive disorder: 12/10/21: Continue with medications. Intake for case management services. 12/09/21: Continue with risperidone. Medical assistance application submitted. Working on referrals for CVIM and case management. 12/08/21: Continue with risperidone. Needs family meeting. Working on medical assistance application. 12/07/21: Increase risperidone to 0.5 mg qAM & 1mg qHS. 12/06/21: Increase risperidone to 0.25 mg qAM & 1 mg qHS. 12/05/21: The patient was admitted to the [facility] ([facility]) on q15 min checks (behavioral with suicide precautions) for safety. The patient will participate in group, recreational, and milieu therapies and will be offered additional individual and family sessions as clinically appropriate. -Start risperidone 0.25 mg qAM & 0.5 mg qhs -Fasting labs in the morning -Will need PCP follow-up for hernia concern Risk Factors Assessment Do You Have Access To A Gun?: No Protective Factors Assessment Employed: No (per mother, unable to maintain employment) Interval History Identifying Information GALE BRYSON is a 30-year-old man who currently lives in [place] with his mother and was admitted on 12/05/21 09:37 on a 201 voluntary commitment for paranoia and psychosis. Chief Complaint "I slept really good". Review of Systems Sleep Information Total Hours of Sleep: 8 Meal Information Percent Meal Consumed - Breakfast: 100 Percent Meal Consumed - Lunch: 75 Percent Meal Consumed - Dinner: 100 Nutrition Comment: pt. resting; meal dated, labeled and refrigerated Subjective Subjective Patient was seen & assessed and interval progress reviewed with treatment team nursing and social work. He completed his intake with CV yesterday. Slept well last night. Mood stable and improved. Intake for case management services today. Actively participating in groups and sharing insightfully. Denies any symptoms of psychosis. No side effects from the risperidone. Physical Exam Psychiatric Orientation: alert, oriented x 3 and + guarded Apperance: appropriately dressed and appropriately groomed Eye Contact: good eye contact Motor Behavior: steady gait and station and no abnormal motor movements Speech: normal rate/rhythm/volume of speech Affect: euthymic affect Mood: no depressed mood and no anxious mood Thought Process: linear/logical thought process Thought Content: reality based without delusions Suicidal Thoughts: denies suicidal thoughts Homicidal Thoughts: denies homicidal thoughts Hallucinations: no auditory hallucinations and no visual hallucinations Cognition: recent memory grossly intact, remote memory grossly intact, attention grossly intact and language grossly intact Estimated Intelligence: consistent with education level Insight: + fair insight Judgement: + fair judgement Vital Signs (Past 24 Hours) Last Vital Signs Temp 36.4 C L 12/10/21 06:00 Pulse 80 12/10/21 06:19 Resp 16 12/10/21 06:00 BP 136/87 12/10/21 06:19 Pulse Ox 98 12/05/21 09:26 Results & Data ([facility]) Current Inpatient Medications Current Inpatient Medications: Current Inpatient Medications Acetaminophen (Acetaminophen 325 Mg Tab) 650 mg PO Q4H PRN PRN Reason: Headache or Minor Fever Stop: 01/04/22 11:15 Al Hydrox/Mg Hydrox/Simethicone (Aluminum/Magnesium Susp 30 Ml Udc) 30 ml PO Q4H PRN PRN Reason: GI Upset Stop: 01/04/22 11:15 Bismuth Subsalicylate (Bismuth Subsalicylate Liqd 236 Ml) 15 ml PO PRN PRN PRN Reason: Loose Stool Stop: 01/04/22 11:15 Hydroxyzine HCl (Hydroxyzine Hcl 25 Mg Tab) 50 mg PO HSZ PRN PRN Reason: Insomnia Stop: 01/04/22 11:15 Last Admin: 12/09/21 22:09 Dose: 50 mg Documented by: Hydroxyzine HCl (Hydroxyzine Hcl 25 Mg Tab) 25 mg PO Q4H PRN PRN Reason: Anxiety Stop: 01/04/22 11:15 Magnesium Hydroxide (Magnesium Hydroxide Susp 30 Ml Udc) 30 ml PO DAILY PRN PRN Reason: Constipation Stop: 01/04/22 11:15 Olanzapine (Olanzapine 5 Mg Tablet) 5 mg PO BID PRN PRN Reason: Agitation Stop: 01/04/22 20:59 Risperidone (Risperidone 1 Mg Tablet) 1 mg PO HS ANDREA Stop: 01/05/22 21:59 Last Admin: 12/09/21 21:23 Dose: 1 mg Documented by: Risperidone (Risperidone 0.5 Mg Tablet) 0.5 mg PO QAM ANDREA Stop: 01/07/22 08:59 Last Admin: 12/09/21 09:08 Dose: 0.5 mg Documented by: Sodium Chloride (Sodium Chloride 0.65% Na Soln 45 Ml ([place])) 1 - 2 sprays NA PRN PRN PRN Reason: Nasal Dryness/Congestion Stop: 01/04/22 11:15 Mental Health & Subst Abuse Tx Therapist Name of Therapist: None Furniture Repair Technician Name of Furniture Repair Technician: None
[2021-12-10] MEDS: risperiDONE 0.5 MG TABLET PO SCH (09:29)
[2021-12-10] MEDS: hydrOXYzine HCl 25 MG TAB PO PRN (21:15)
[2021-12-10] MEDS: risperiDONE 1 MG TABLET PO SCH (21:15)
[2021-12-11] MEDS: risperiDONE 0.5 MG TABLET PO SCH (08:28)
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
== END 2021-12-11 11:30 | disposition home or self-care (01) | DRG 885 ==
LOC: ED 05:51 → 3S 09:37